=== PATIENT | male | born 1985 | race Caucasian/White ===

== ENCOUNTER 2017-11-12 20:00 | Emergency (ER) | payer BC ==
[2017-11-12 20:23] LABS: #Basophils 0.1 thou/uL (0.0-0.2); #Eosinphils 0.1 thou/uL (0.0-0.7); #Lymphocytes 2.4 thou/uL (1.20-3.40); #Monocytes 0.8 thou/uL (0.11-0.59); #Neutrophils 3.5 thou/uL (1.40-6.50); %Basophils 0.9 % (0.0-1.0); %Eosinophils 1.6 % (0.0-10.0); %Lymphocytes 34.5 % (21.0-51.0); %Monocytes 12.1 % (0.0-10.0); %Neutrophils 50.9 % (42.0-75.0); Hemoglobin 16.1 g/dL (14.0-18.0); Mean Corpuscular HGB CONC 35.1 g/dL (32.0-36.0); Mean Corpuscular Hemoglobin 31.1 pg (27.0-31.0); Mean Corpuscular Volume 88.8 fl (80.0-94.0); Mean Platelet Volume 6.6 fL (7.4-10.4); Platelet Count 212 thou/uL (130-400); RBC Distribution Width 11.2 % (11.5-14.5); Red Blood Cell (RBC) Count 5.15 mill/uL (4.70-6.10); White Blood Cell (WBC) Count 6.9 thou/uL (4.8-10.8)
[2017-11-12 20:27] LABS: Bilirubin Negative (Negative); Blood, Urine Negative (Negative); Clarity CLEAR (Clear); Glucose, Urine (Dipstick) Negative (Negative); Leukocyte Negative (Negative); Nitrite Negative (Negative); Protein, Urine (Dipstick) Negative (Neg-Trace); Specific Gravity, Urine 1.026 (1.002-1.036); Urobilinogen 0.2 mg/dL (0.2-1.0); pH, Urine 5.5 (5.0-9.0)
[2017-11-12] MEDS ORDERED: Ketorolac Tromethamine 60 MG/2 ML VIAL ONE (20:41)
[2017-11-12 20:49] LABS: ALT (SGPT) 14 U/L (8-55); AST (SGOT) 19 U/L (5-34); Albumin 4.7 g/dL (3.5-5.0); Alkaline Phosphatase 97 U/L (40-150); Anion Gap 15 mmol/L (10-20); BUN (Urea Nitrogen) 16 mg/dL (8.9-20.6); Bilirubin, Total 0.5 mg/dL (0.2-1.2); Calc. Creatinine Clearance 0 mL/min (70-130); Calcium 9.7 mg/dL (7.8-10.44); Carbon Dioxide 28 mmol/L (22-29); Chloride 102 mmol/L (98-107); Estimated GFR-MDRD 85; Globulin 3.1 g/dL (2.4-3.5); Glucose 100 mg/dL (70-105); Lipase 34 U/L (8-78); Protein, Total 7.8 g/dL (6.0-8.3); Sodium 141 mmol/L (136-145)
== END 2017-11-12 21:08 | disposition home or self-care (01) ==
LOC: ERS 20:00
DX: M54.5 Low back pain (principal)
CPT/HCPCS: 36415; 80053; 81003; 82150; 83690; 85025; 96372; J1885

== ENCOUNTER 2017-12-02 01:37 | Emergency (ER) | payer BC ==
[2017-12-02] MEDS ORDERED: Ketorolac Tromethamine 60 MG/2 ML VIAL ONE (03:16)
[2017-12-02] MEDS ORDERED: HYDROcodone/Acetaminophen 10/325 mg Tablet ONE (03:16)
--- NOTE | 2017-12-02 07:48 | RAD ---
LEFT SHOULDER 2 VIEWS: HISTORY: Trauma. Pain. FINDINGS: Comminuted and slightly displaced mid to distal left clavicle fracture is noted. No additional fract ures. IMPRESSION: Left clavicle fracture. POS: [facility]
== END 2017-12-02 03:55 | disposition home or self-care (01) ==
LOC: ERS 01:37
DX: S42.032A Displaced fracture of lateral end of left clavicle, initial encounter for closed fracture (principal); V00.131A Fall from skateboard, initial encounter
CPT/HCPCS: 96372; J1885

== ENCOUNTER 2022-03-08 11:35 | Outpatient (CLI) | payer BC | END 2022-03-08 11:36 | disposition home or self-care (01) | LOC: BICRAD 11:35 | PROVIDERS: ATTEND Internal Medicine Cardiovascular Disease | DX: R06.02 Shortness of breath (principal) | CPT/HCPCS: 71046 ==

== ENCOUNTER 2024-01-24 11:50 | Day surgery (SDC) | payer BC ==
[2024-01-22 12:48] VITALS: BMI 23.7
[2024-01-24] MEDS ORDERED: AFRIN NASAL MIST 15 ML BOT ONE (12:30)
[2024-01-24] MEDS ORDERED: Lidocaine 1% (PF) 30 ML VIAL ONE (12:35)
[2024-01-24] MEDS ORDERED: Oxymetazoline HCl 0.05% (30 ML BOT) ONE (12:35)
[2024-01-24] MEDS ORDERED: EPINEPHrine 1 MG/ML VIAL ONE (12:35)
[2024-01-24] MEDS ORDERED: Dexamethasone 20 MG/5 ML VIAL ONE (12:58)
[2024-01-24] MEDS ORDERED: PROPOFOL 40 ML ONE (12:58)
[2024-01-24] MEDS ORDERED: Midazolam HCl 2 mg/2 ml Vial ONE (12:58)
[2024-01-24] MEDS ORDERED: fentaNYL PF 100 MCG/2 ML SYRINGE ONE (12:58)
[2024-01-24] MEDS ORDERED: Ondansetron PF 4 MG/2 ML Vial ONE (12:58)
[2024-01-24] MEDS ORDERED: Lidocaine 1% PF 5 ML VIAL ONE (12:58)
== END 2024-01-24 15:32 | disposition home or self-care (01) ==
LOC: SDC 11:50
PROVIDERS: ATTEND Otolaryngology Plastic Surgery within the Head & Neck
PROC: 09BQ8ZZ Excision of Right Maxillary Sinus, Via Natural or Artificial Opening Endoscopic (ICD-10-PCS; principal; 2024-01-24)
PROC: 8E09XBZ Computer Assisted Procedure of Head and Neck Region (ICD-10-PCS; principal; 2024-01-24)
PROC: 09BR8ZZ Excision of Left Maxillary Sinus, Via Natural or Artificial Opening Endoscopic (ICD-10-PCS; principal; 2024-01-24)
PROC: 095L7ZZ Destruction of Nasal Turbinate, Via Natural or Artificial Opening (ICD-10-PCS; principal; 2024-01-24)
PROC: 09BT8ZZ Excision of Left Frontal Sinus, Via Natural or Artificial Opening Endoscopic (ICD-10-PCS; principal; 2024-01-24)
PROC: 09BV8ZZ Excision of Left Ethmoid Sinus, Via Natural or Artificial Opening Endoscopic (ICD-10-PCS; principal; 2024-01-24)
PROC: 09BU8ZZ Excision of Right Ethmoid Sinus, Via Natural or Artificial Opening Endoscopic (ICD-10-PCS; principal; 2024-01-24)
PROC: 09BS8ZZ Excision of Right Frontal Sinus, Via Natural or Artificial Opening Endoscopic (ICD-10-PCS; principal; 2024-01-24)
PROC: 09SM4ZZ Reposition Nasal Septum, Percutaneous Endoscopic Approach (ICD-10-PCS; principal; 2024-01-24)
DX: J34.2 Deviated nasal septum (principal); J34.3 Hypertrophy of nasal turbinates; J32.4 Chronic pansinusitis; J01.91 Acute recurrent sinusitis, unspecified; J34.89 Other specified disorders of nose and nasal sinuses
CPT/HCPCS: J0171; J1100; J2001; J2250; J2405; J2704

== ENCOUNTER → 2024-02-08 | Day surgery (SDC) | payer BC ==
[~2024-02-08] MED LIST: Gadobenate Dimeglumine 2 ML, Sodium Chloride 0.9% 250 ML 10 ML, Iopamidol 8 ML, Lidocai... IV SCH; Sodium Bicarbonate 2.5 MEQ/5 ML SDV ONE
== END ==
LOC: MRI 08:50
PROVIDERS: ATTEND Orthopaedic Surgery
PROC: BP09YZZ Plain Radiography of Left Shoulder using Other Contrast (ICD-10-PCS; principal; 2024-02-08)
DX: M25.512 Pain in left shoulder (principal)
CPT/HCPCS: 23350; 77002; A9577; J0171; J7050; Q9967